=== PATIENT | female | born 1945 | race Caucasian/White ===

== ENCOUNTER → 2023-10-07 16:55 | Outpatient (CLI) | payer BC, SELFPAY ==
--- NOTE | 2023-10-07 16:58 | DI.RAD.S_ITS ---
PROCEDURE: XR CHEST 2V INDICATIONS: Cough x 5 weeks TECHNIQUE: 2 views of the chest were acquired. COMPARISON: None. FINDINGS: Surgical changes and devices: None. Lungs and pleura: No airspace consolidation. Mild peribronchial cuffing. No pleural effusions. Mediastinum: Normal heart size Bones and chest wall: Degenerative changes. Age-indeterminate superior endplate mild height loss at T12. IMPRESSION: Mild peribronchial cuffing may represent viral infection/bronchitis. No airspace consolidation or pleural effusion. Age-indeterminate mild superior endplate height loss at T12. Dictated by: Ebenezer Buckner M.D. on 10/08/2023 at 11:46 Approved by: Ebenezer Buckner M.D. on 10/08/2023 at 11:47
== END ==
PROVIDERS: Referring Provider Physician Assistant; Visit Provider Physician Assistant
DX: J40 Bronchitis, not specified as acute or chronic (principal)
CPT/HCPCS: 71046